=== PATIENT | female | born 1970 ===

== ENCOUNTER 2024-10-13 07:00 | Inpatient (IN) | payer OTHER ==
[~2024-10-13] VITALS: Ht 170.2 cm; Wt 74.8 kg
[2024-10-13 10:49] VITALS: BP 108/74
[2024-10-13] MEDS ORDERED: ZESTRIL5 MG PO (10:50)
[2024-10-13 12:17] LABS: COVID-19 AG NEGATIVE (NEGATIVE)
[2024-10-14] MEDS ORDERED: METRONIDAZOLE/SODIUM CHLORIDE 500 MG/100 ML PIGGYBACK IV ONE (08:19)
[2024-10-14] MEDS ORDERED: CEFAZOLIN SODIUM 1,000 MG VIAL ONE (08:19)
[2024-10-14] MEDS ORDERED: POVIDONE-IODINE 118 ML BOTT TOP ONE (12:03)
[2024-10-14] MEDS ORDERED: VISTASEAL DUAL APPICATOR 1 EACH APPL TOP ONE (14:06)
[2024-10-14] MEDS ORDERED: THROMBIN,HU/FIBRINOGEN/CALCIUM 10 ML SYRINGE TOP ONE (14:06)
[2024-10-14] MEDS ORDERED: ENALAPRILAT DIHYDRATE 1.25 MG/ML VIAL IV PRN (14:15)
[2024-10-14] MEDS ORDERED: OxyCODONE HCL 5 MG TABLET (ROXICODONE) PO PRN (14:45)
[2024-10-14] MEDS ORDERED: KETOROLAC TROMETHAMINE 30 MG VIAL IV ONE (14:45)
[2024-10-14] MEDS ORDERED: RINGERS SOLUTION,LACTATED 1,000 ML IV SCH (14:45)
[2024-10-14] MEDS ORDERED: MORPHINE SULFATE 4 MG/ML CARTRIDGE IV PRN (14:45)
[2024-10-14] MEDS ORDERED: MORPHINE SULFATE 4 MG/ML VIAL IV ONE (16:35)
[2024-10-14 17:00] LABS: BASO % 0.4 % (0.1-1.2); EOS # 0.08 (0.04-0.54); EOS % 0.8 % (0.7-7.0); HEMATOCRIT 36.3 % (34.1-44.9); HEMOGLOBIN 12.3 g/dL (11.2-15.7); LYMPH # 1.07 (1.18-3.74); LYMPH % 10.2 % (19.3-53.1); MONO # 0.56 (0.24-0.82); MONO % 5.4 % (4.7-12.5); NEUT # 8.67 (1.56-6.13); NEUT % 82.8 % (34.0-71.1); PLATELET COUNT 182 K/uL (163-369); RED BLOOD COUNT 4.24 M/uL (3.93-5.22); RED CELL DISTRIBUTION WIDTH 12.3 % (11.6-14.4)
[2024-10-14] MEDS ORDERED: SIMETHICONE 125 MG CAPSULE PO SCH (17:00)
[2024-10-14] MEDS ORDERED: METOCLOPRAMIDE HCL 5 MG/ML VIAL IV SCH (17:00)
[2024-10-14] MEDS ORDERED: CEFAZOLIN SODIUM 1,000 MG VIAL IV SCH (17:00)
[2024-10-14 17:38] LABS: ALBUMIN 3.9 gm/dL (3.4-5.0); CALCIUM 9.4 mg/dL (8.5-10.1); CREATININE SERUM 0.91 mg/dL (0.55-1.02); GFR 64.67; PHOSPHOROUS 3.4 mg/dL (2.5-4.9); POTASSIUM 4.01 mEq/L (3.5-5.1)
[2024-10-14] MEDS ORDERED: ACETAMINOPHEN 500 MG GEL..CAP PO SCH (18:00)
[2024-10-14 20:56] VITALS: BP 131/69; O2SAT 98
[2024-10-14] MEDS ORDERED: DOCUSATE SODIUM 100MG CAP PO SCH (21:00)
[2024-10-14] MEDS ORDERED: FAMOTIDINE/PF 20 MG/2 ML VIAL IV PUSH SCH (21:00)
[2024-10-14] MEDS ORDERED: CELECOXIB 200 MG CAPSULE PO SCH (21:00)
[2024-10-14] MEDS ORDERED: GABAPENTIN 300 MG CAPSULE PO SCH (21:00)
[2024-10-14 21:39] VITALS: BP 131/69; O2SAT 100
[2024-10-15 01:00] VITALS: BP 114/68
[2024-10-15 06:39] LABS: BASO % 0.6 % (0.1-1.2); EOS % 1.5 % (0.7-7.0); HEMOGLOBIN 11.4 g/dL (11.2-15.7); LYMPH % 28.3 % (19.3-53.1); MEAN CORPUSCULAR HEMOGLOBIN 28.9 pg (25.6-32.2); MONO # 0.53 (0.24-0.82); MONO % 7.9 % (4.7-12.5); NEUT # 4.12 (1.56-6.13); NEUT % 61.4 % (34.0-71.1); PLATELET COUNT 161 K/uL (163-369); RED BLOOD COUNT 3.94 M/uL (3.93-5.22); RED CELL DISTRIBUTION WIDTH 12.3 % (11.6-14.4)
[2024-10-15 06:44] LABS: ALBUMIN 3.2 gm/dL (3.4-5.0); CALCIUM 8.8 mg/dL (8.5-10.1); CREATININE SERUM 0.88 mg/dL (0.55-1.02); GFR 67.22; PHOSPHOROUS 3.9 mg/dL (2.5-4.9); POTASSIUM 4.11 mEq/L (3.5-5.1)
[2024-10-15 08:00] VITALS: BP 119/66; O2SAT 98
[2024-10-15] MEDS ORDERED: KETOROLAC TROMETHAMINE 30 MG VIAL IV NR (08:00)
[2024-10-15] MEDS ORDERED: TRAMADOL HCL 50 MG TABLET PO PRN (08:00)
[2024-10-15] MEDS ORDERED: LISINOPRIL 5 MG TABLET PO SCH (09:00)
[2024-10-15] MEDS ORDERED: ENOXAPARIN SODIUM 40 MG/0.4 ML SYRINGE SUBCUTANEO SCH (09:00)
== END 2024-10-15 11:52 | disposition home or self-care (01) | DRG 743 ==
LOC: SURH 07:00 → O/R 10-14 08:08 → OB/GYN 10-14 17:14
PROVIDERS: ADMIT Obstetrics & Gynecology Gynecologic Oncology; ATTEND Obstetrics & Gynecology Gynecologic Oncology
PROC: 0UT74ZZ Resection of Bilateral Fallopian Tubes, Percutaneous Endoscopic Approach (ICD-10-PCS; 2024-10-14)
PROC: 0UT24ZZ Resection of Bilateral Ovaries, Percutaneous Endoscopic Approach (ICD-10-PCS; 2024-10-14)
PROC: 07BC4ZZ Excision of Pelvis Lymphatic, Percutaneous Endoscopic Approach (ICD-10-PCS; 2024-10-14)
PROC: 0UT94ZZ Resection of Uterus, Percutaneous Endoscopic Approach (ICD-10-PCS; principal; 2024-10-14 10:15)
DX: D25.0 Submucous leiomyoma of uterus (principal); N72 Inflammatory disease of cervix uteri; N80.03 Adenomyosis of the uterus; D36.0 Benign neoplasm of lymph nodes; D27.1 Benign neoplasm of left ovary; D27.0 Benign neoplasm of right ovary